=== PATIENT | male | born 1980 | race Caucasian/White ===

== ENCOUNTER 2020-10-28 15:07 | Emergency (ER) | payer SELFPAY ==
[2020-10-28 15:42] VITALS: BP 135/74; PULSE 103; RESP 16; TEMP 37.2; O2SAT 96; BMI 33.9
[2020-10-28] MEDS: ACETAMINOPHEN 325 MG TABLET 650 MG PO (15:50)
== END 2020-10-28 15:50 | disposition left against medical advice (07) ==
PROVIDERS: Emergency Provider Emergency Medicine
DX: U07.1 COVID-19 (principal)
CPT/HCPCS: 99283